=== PATIENT | female | born 1995 | race Caucasian/White ===

== ENCOUNTER 2018-07-18 09:44 | Observation (INO) | payer MEDICAID ==
[2018-07-18] MEDS ORDERED: RINGERS SOLUTION,LACTATED 1,000 ML IV ONE (10:20)
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
[2018-07-18] MEDS ORDERED: MISOPROSTOL 0.2 MG TABLET PR PRN (10:25)
[2018-07-18] MEDS ORDERED: ZOLPIDEM TARTRATE 5 MG TABLET PO PRN (10:25)
[2018-07-18] MEDS ORDERED: MEASLES,MUMPS&RUBELLA VACC/PF 0.5 ML VIAL SUBCUT PRN (10:25)
[2018-07-18] MEDS ORDERED: PROMETHAZINE HCL INJ 25 MG/1 ML VIAL IV PRN (10:25)
[2018-07-18] MEDS ORDERED: PROMETHAZINE HCL 25 MG TABLET PO PRN (10:25)
[2018-07-18 11:48] LABS: ABSOLUTE BASOPHILS # (AUTO) 0.1 10^3/uL (0.0-0.2); ABSOLUTE LYMPHOCYTES (AUTO) 1.1 10^3/uL (0.5-4.7); ABSOLUTE MONOCYTES (AUTO) 0.7 10^3/uL (0.1-1.4); ABSOLUTE NEUT (AUTO) 11.9 10^3/uL (1.7-8.2); BASOPHILS % (AUTO) 0.4 % (0-2); EOSINOPHILS % (AUTO) 0.1 % (0-6); HEMATOCRIT 32.6 % (36.0-47.0); HEMOGLOBIN 11.4 g/dL (12.0-15.5); LYMPHOCYTES % (AUTO) 8.2 % (13-45); MEAN CORPUSCULAR HEMOGLOBIN 28.8 pg (27.0-33.4); MEAN CORPUSCULAR HGB CONC 34.9 g/dL (32.0-36.0); MEAN CORPUSCULAR VOLUME 82 fl (80-97); PLATELET COUNT 229 10^3/uL (150-450); RED BLOOD COUNT 3.95 10^6/uL (3.72-5.28); RED CELL DISTRIBUTION WIDTH 13.6 % (11.5-14.0); SEGMENTED NEUTROPHILS % (AUTO) 86.3 % (42-78); TOTAL CELLS COUNTED % (AUTO) 100 %; WHITE BLOOD COUNT 13.9 10^3/uL (4.0-10.5)
[2018-07-18 12:04] LABS: ALANINE AMINOTRANSFERASE 46 U/L (9-52); ALBUMIN 3.4 g/dL (3.5-5.0); ALKALINE PHOSPHATASE 92 U/L (38-126); ANION GAP 10 (5-19); ASPARTATE AMINO TRANSFERASE 18 U/L (14-36); BILIRUBIN,DIRECT 0.4 mg/dL (0.0-0.4); BILIRUBIN,TOTAL 0.9 mg/dL (0.2-1.3); BLOOD UREA NITROGEN 3 mg/dL (7-20); CALCIUM 9.5 mg/dL (8.4-10.2); CARBON DIOXIDE 23 mmol/L (22-30); CHLORIDE 104 mmol/L (98-107); GLUCOSE 87 mg/dL (75-110); INTERNATIONAL RATION (INR) 1.06; POTASSIUM 3.6 mmol/L (3.6-5.0); PROTHROMBIN TIME 14.3 SEC (11.4-15.4); SODIUM 136.8 mmol/L (137-145); TOTAL PROTEIN 6.5 g/dL (6.3-8.2)
[2018-07-18 12:05] LABS: PARTIAL THROMBOPLASTIN TIME 44.9 SEC (23.5-35.8)
[2018-07-18] MEDS ORDERED: MISOPROSTOL 0.2 MG TABLET ONE (13:44)
[2018-07-18] MEDS: IBUPROFEN 800 MG TABLET PO SCH ×2 (15:34→21:39)
--- NOTE | 2018-07-18 16:02 | PDOC PROGRESS REPORT ---
Subjective Progress Note for:: 07/18/18 Subjective:: states she has been crampy for a couple of days Reason For Visit: G1 at approximately 16 weeks in by EMS for c/o baby delivered in her underpants. states water broke at 0900 (45 mins before arrival to ER). fetus found in underpants with placenta still undelivered. placenta delivered by CNM easily, cx found to be 1cm dilated and possible products felt in uterus. discussed with Dr Gupta. cytotec placed OR 800mcg at 1420. Physical Exam - Physical Exam Vital Signs: Temp Pulse Resp BP Pulse Ox 98.0 F 105 H 18 127/69 H 97 07/18/18 15:18 07/18/18 15:18 07/18/18 15:18 07/18/18 15:18 07/18/18 15:18 General appearance: PRESENT: no acute distress - exam done by er dr Eddy Laboratory Results: 07/18/18 11:37 07/18/18 11:37 07/18/18 07/18/18 07/18/18 11:37 11:37 11:37 WBC 13.9 H RBC 3.95 Hgb 11.4 L Hct 32.6 L MCV 82 MCH 28.8 MCHC 34.9 RDW 13.6 Plt Count 229 Seg Neutrophils % 86.3 H Lymphocytes % 8.2 L Monocytes % 5.0 Eosinophils % 0.1 Basophils % 0.4 Absolute Neutrophils 11.9 H Absolute Lymphocytes 1.1 Absolute Monocytes 0.7 Absolute Eosinophils 0.0 Absolute Basophils 0.1 Sodium 136.8 L Potassium 3.6 Chloride 104 Carbon Dioxide 23 Anion Gap 10 BUN 3 L Creatinine 0.30 L Est GFR ( Amer) > 60 Est GFR (Non-Af Amer) > 60 Glucose 87 Calcium 9.5 Total Bilirubin 0.9 AST 18 ALT 46 Alkaline Phosphatase 92 Total Protein 6.5 Albumin 3.4 L Blood Type O POSITIVE Antibody Screen NEGATIVE Assessment & Plan - Diagnosis (1) Retained products of conception after miscarriage Is this a current diagnosis for this admission?: Yes (2) Spontaneous Is this a current diagnosis for this admission?: Yes - Time Time Spent with patient: 25-34 minutes Anticipated discharge: Home Within: within 24 hours - Plan Summary Plan Summary: discharge in AM if stable
[2018-07-18] MEDS: FERROUS SULFATE 325 MG TABLET PO SCH (18:36)
[2018-07-18] MEDS: DOCUSATE SODIUM 100 MG CAPSULE PO SCH (18:36)
[2018-07-18] MEDS: FAMOTIDINE 20 MG TABLET PO SCH (21:39)
[2018-07-19] MEDS: IBUPROFEN 800 MG TABLET PO SCH (05:44)
[2018-07-19 07:39] LABS: MEAN CORPUSCULAR HEMOGLOBIN 29.7 pg (27.0-33.4); MEAN CORPUSCULAR HGB CONC 35.4 g/dL (32.0-36.0); MEAN CORPUSCULAR VOLUME 84 fl (80-97); PLATELET COUNT 204 10^3/uL (150-450); RED BLOOD COUNT 3.69 10^6/uL (3.72-5.28); RED CELL DISTRIBUTION WIDTH 14.1 % (11.5-14.0); WHITE BLOOD COUNT 7.3 10^3/uL (4.0-10.5)
[2018-07-19] MEDS: FERROUS SULFATE 325 MG TABLET PO SCH (09:56)
[2018-07-19] MEDS: FAMOTIDINE 20 MG TABLET PO SCH (09:56)
[2018-07-19] MEDS: DOCUSATE SODIUM 100 MG CAPSULE PO SCH (09:56)
--- NOTE | 2018-07-19 09:59 | PDOC DISCHARGE SUMMARY ---
General - Admit/Disc Date/PCP Admission Date/Primary Care Provider: 07/18/18 10:32 Discharge Date: 07/19/18 - Discharge Diagnosis (1) Retained products of conception after miscarriage Is this a current diagnosis for this admission?: Yes (2) Spontaneous Is this a current diagnosis for this admission?: Yes - Additional Information Resuscitation Status: Full Code Discharge Diet: Regular Discharge Activity: Balance Activity w/Rest Prescriptions: Ibuprofen [Motrin 800 mg Tablet] 800 mg PO Q8HP PRN #30 tablet PRN Reason: Home Medications: Acetaminophen [Tylenol Extra Strength 500 mg Tablet] 1,000 mg PO Q5HP PRN 95/Iron Fum/Folic/Dha [ + Dha Combo Pack] 1 each PO DAILY 07/18 Ibuprofen [Motrin 800 mg Tablet] 800 mg PO Q8HP PRN #30 tablet 07/19/18 History of Present Illness History of Present Illness: SUDHAKAR DA SILVA is a 22 year old female Physical Exam - Physical Exam Vital Signs: Temp Pulse Resp BP Pulse Ox 97.8 F 78 16 110/68 99 07/19/18 03:20 07/19/18 03:20 07/19/18 03:20 07/19/18 03:20 07/19/18 03:20 Intake & Output 07/18/18 07/19/18 07/20/18 06:59 06:59 06:59 Intake Total 2640 Balance 2640 Weight 193 kg Focused psych exam: ABSENT: catatonic, delusional - normal affect, euphoric, flight of ideas, internal stimuli, paranoid, pressured speech, psychomotor agitation, restlessness, other - Gynecological Exam Uterus: normal - nontender, low, firm Result Laboratory Results: 07/19/18 07:02 07/18/18 11:37 07/18/18 07/18/18 07/18/18 11:37 11:37 11:37 WBC 13.9 H RBC 3.95 Hgb 11.4 L Hct 32.6 L MCV 82 MCH 28.8 MCHC 34.9 RDW 13.6 Plt Count 229 Seg Neutrophils % 86.3 H Lymphocytes % 8.2 L Monocytes % 5.0 Eosinophils % 0.1 Basophils % 0.4 Absolute Neutrophils 11.9 H Absolute Lymphocytes 1.1 Absolute Monocytes 0.7 Absolute Eosinophils 0.0 Absolute Basophils 0.1 Sodium 136.8 L Potassium 3.6 Chloride 104 Carbon Dioxide 23 Anion Gap 10 BUN 3 L Creatinine 0.30 L Est GFR ( Amer) > 60 Est GFR (Non-Af Amer) > 60 Glucose 87 Calcium 9.5 Total Bilirubin 0.9 AST 18 ALT 46 Alkaline Phosphatase 92 Total Protein 6.5 Albumin 3.4 L Blood Type O POSITIVE Antibody Screen NEGATIVE 07/19/18 07:02 WBC 7.3 RBC 3.69 L Hgb 11.0 L Hct 31.0 L MCV 84 MCH 29.7 MCHC 35.4 RDW 14.1 H Plt Count 204 Seg Neutrophils % Lymphocytes % Monocytes % Eosinophils % Basophils % Absolute Neutrophils Absolute Lymphocytes Absolute Monocytes Absolute Eosinophils Absolute Basophils Sodium Potassium Chloride Carbon Dioxide Anion Gap BUN Creatinine Est GFR ( Amer) Est GFR (Non-Af Amer) Glucose Calcium Total Bilirubin AST ALT Alkaline Phosphatase Total Protein Albumin Blood Type Antibody Screen Plan Time Spent: Less than 30 Minutes - discharge today with f/u with [facility] at [facility] on saturday
[2018-07-19 10:39] VITALS: BP 110/68
== END 2018-07-19 10:53 | disposition home or self-care (01) ==
LOC: ER 09:44 → INTOOBSV 10:32 → OBSVTOIN 10:32 → EH 10:32 → 2N 12:00
PROVIDERS: ADMIT Obstetrics & Gynecology; ATTEND Obstetrics & Gynecology
DX: O03.39 Incomplete spontaneous abortion with other complications (principal); R00.0 Tachycardia, unspecified; O41.1220 Chorioamnionitis, second trimester, not applicable or unspecified
CPT/HCPCS: 99285; 86900; 86901; 36415 ×2; 86850; 84702; 85025; 85027; 85610; 85730; 80053; 88304 ×2; 88305 ×2; G0378 ×3; J3490 ×8

== ENCOUNTER 2020-05-20 14:50 | Outpatient (CLI) | payer MEDICAID ==
[2020-05-20 15:34] LABS: MEAN CORPUSCULAR HEMOGLOBIN 28.4 pg (27.0-33.4); MEAN CORPUSCULAR HGB CONC 34.2 g/dL (32.0-36.0); MEAN CORPUSCULAR VOLUME 83 fl (80-97); PLATELET COUNT 236 10^3/uL (150-450); RED BLOOD COUNT 4.58 10^6/uL (3.72-5.28); RED CELL DISTRIBUTION WIDTH 14.1 % (11.5-14.0); WHITE BLOOD COUNT 10.3 10^3/uL (4.0-10.5)
[2020-05-20 15:50] LABS: APPEARANCE,URINE SLIGHTLY-CLOUDY; BILIRUBIN,URINE NEGATIVE (NEGATIVE); COLOR,URINE YELLOW; GLUCOSE, URINE NEGATIVE (NEGATIVE); KETONES,URINE NEGATIVE (NEGATIVE); LEUKOCYTE ESTERASE,URINE NEGATIVE (NEGATIVE); NITRITE,URINE NEGATIVE (NEGATIVE); PROTEIN,URINE 30 mg/dL (NEGATIVE); URINE SPECIFIC GRAVITY 1.028
[2020-05-20 16:02] LABS: ALBUMIN 3.4 g/dL (3.5-5.0); ALKALINE PHOSPHATASE 109 U/L (38-126); ANION GAP 7 (5-19); ASPARTATE AMINO TRANSFERASE 14 U/L (14-36); BILIRUBIN,TOTAL 0.3 mg/dL (0.2-1.3); BLOOD UREA NITROGEN 7 mg/dL (7-20); CALCIUM 9.2 mg/dL (8.4-10.2); CARBON DIOXIDE 20 mmol/L (22-30); CHLORIDE 108 mmol/L (98-107); GLUCOSE 78 mg/dL (75-110); POTASSIUM 4.1 mmol/L (3.6-5.0); TOTAL PROTEIN 6.3 g/dL (6.3-8.2); URIC ACID 6.2 mg/dL (2.5-6.2)
[2020-05-20 16:11] LABS: URINE AMPHETAMINES SCREEN NEGATIVE; URINE BARBITURATES SCREEN NEGATIVE; URINE BENZODIAZEPINES SCREEN NEGATIVE; URINE COCAINE SCREEN NEGATIVE; URINE METHADONE SCREEN NEGATIVE; URINE PHENCYCLIDINE SCREEN NEGATIVE
[2020-05-20 16:14] LABS: URINE CREATININE 201.7 mg/dL (16-327); URINE PROTEIN 8.8 mg/dL (<12)
[2020-05-20 16:17] LABS: URINE MARIJUANA (THC) SCREEN UNCONFIRMED POSITIVE
--- NOTE | 2020-05-20 16:29 | Non Stress Test Report ---
Non Stress Test Datetime Report Generated by CPN: 05/20/2020 16:29 DEMOGRAPHIC Test Number: 1 INDICATION Indication for Study (NST) Other: PIH workup VITAL SIGNS Temperature - NST: 97.5 Pulse - NST: 88 RESP - NST: 18 NBPSYS NST: 138 NBPDIA NST: 67 MONITORING Monitor Explained: Monitor Explained; Test Explained; Patient Verbalized Understanding Time on Monitor: 05/20/2020 15:13 Time off Monitor: 05/20/2020 16:19 NST Duration: 66 NST INTERVENTIONS NST Interventions: PO Hydration; Reposition Patient Physician Notified NST: Dr Larry BABY A: [id number] BABY A Movement : Present Contraction Frequency : irregular FHR Baseline : 130 Accelerations : 15X15 Decelerations : None Variability : Moderate 6-25bpm NST Review: Meets Criteria for Reactive NST NST Review and Verified By : Alecia Serrano RN NST Results: Reactive NST REPORT Report Trigger: Send Report
== END 2020-05-20 16:28 | disposition home or self-care (01) ==
LOC: LC 14:50
PROVIDERS: ATTEND Obstetrics & Gynecology
DX: O16.3 Unspecified maternal hypertension, third trimester (principal); O47.1 False labor at or after 37 completed weeks of gestation; Z3A.39 39 weeks gestation of pregnancy
CPT/HCPCS: 59025; 36415; 84156; 84550; 82570; 85027; 81005; 80053; 80307; G0480 ×2; 80349

== ENCOUNTER 2020-05-25 17:31 | Inpatient (IN) | payer MEDICAID ==
[2020-05-25] MEDS ORDERED: RINGERS SOLUTION,LACTATED 1,000 ML IV PRN (17:41)
[2020-05-25] MEDS ORDERED: RINGERS SOLUTION,LACTATED 1,000 ML IV ONE (17:41)
[2020-05-25] MEDS ORDERED: ACETAMINOPHEN 325 MG TABLET PO PRN (17:43)
[2020-05-25] MEDS ORDERED: ZOLPIDEM TARTRATE 5 MG TABLET PO PRN (17:43)
[2020-05-25] MEDS ORDERED: MAG HYDROX/AL HYDROX/SIMETH SUSP 30 ML UDCUP PO PRN (17:43)
[2020-05-25] MEDS ORDERED: DINOPROSTONE 10 MG VAGINAL INSERT.SR PV ONE (17:43)
[2020-05-25 18:34] LABS: ABSOLUTE EOSINOPHILS # (AUTO) 0.1 10^3/uL (0.0-0.6); ABSOLUTE LYMPHOCYTES (AUTO) 1.7 10^3/uL (0.5-4.7); ABSOLUTE MONOCYTES (AUTO) 0.6 10^3/uL (0.1-1.4); ABSOLUTE NEUT (AUTO) 7.4 10^3/uL (1.7-8.2); BASOPHILS % (AUTO) 0.3 % (0-2); EOSINOPHILS % (AUTO) 0.9 % (0-6); HEMATOCRIT 37.3 % (36.0-47.0); HEMOGLOBIN 12.8 g/dL (12.0-15.5); MEAN CORPUSCULAR HEMOGLOBIN 28.4 pg (27.0-33.4); MEAN CORPUSCULAR HGB CONC 34.3 g/dL (32.0-36.0); MEAN CORPUSCULAR VOLUME 83 fl (80-97); MONOCYTES % (AUTO) 6.4 % (3-13); PLATELET COUNT 254 10^3/uL (150-450); RED CELL DISTRIBUTION WIDTH 14.4 % (11.5-14.0); SEGMENTED NEUTROPHILS % (AUTO) 75.4 % (42-78); TOTAL CELLS COUNTED % (AUTO) 100 %; WHITE BLOOD COUNT 9.8 10^3/uL (4.0-10.5)
[2020-05-25 18:49] LABS: ALBUMIN 3.6 g/dL (3.5-5.0); ALKALINE PHOSPHATASE 113 U/L (38-126); ANION GAP 9 (5-19); ASPARTATE AMINO TRANSFERASE 15 U/L (14-36); BILIRUBIN,TOTAL 0.3 mg/dL (0.2-1.3); BLOOD UREA NITROGEN 5 mg/dL (7-20); CALCIUM 9.1 mg/dL (8.4-10.2); CARBON DIOXIDE 19 mmol/L (22-30); CHLORIDE 107 mmol/L (98-107); GLUCOSE 76 mg/dL (75-110); TOTAL PROTEIN 6.5 g/dL (6.3-8.2); URIC ACID 6.7 mg/dL (2.5-6.2)
[2020-05-25] MEDS ORDERED: DINOPROSTONE 10 MG VAGINAL INSERT.SR ONE (18:50)
[2020-05-25 18:51] LABS: APPEARANCE,URINE CLOUDY; BILIRUBIN,URINE NEGATIVE (NEGATIVE); COLOR,URINE YELLOW; GLUCOSE, URINE NEGATIVE (NEGATIVE); KETONES,URINE NEGATIVE (NEGATIVE); LEUKOCYTE ESTERASE,URINE NEGATIVE (NEGATIVE); NITRITE,URINE NEGATIVE (NEGATIVE); PROTEIN,URINE NEGATIVE (NEGATIVE)
[2020-05-25 19:04] LABS: URINE AMPHETAMINES SCREEN NEGATIVE; URINE BARBITURATES SCREEN NEGATIVE; URINE BENZODIAZEPINES SCREEN NEGATIVE; URINE COCAINE SCREEN NEGATIVE; URINE METHADONE SCREEN NEGATIVE; URINE PHENCYCLIDINE SCREEN NEGATIVE
[2020-05-25 19:06] LABS: URINE MARIJUANA (THC) SCREEN UNCONFIRMED POSITIVE
[2020-05-25 19:07] LABS: URINE CREATININE 168.3 mg/dL (16-327); URINE PROTEIN 7.9 mg/dL (<12)
[2020-05-25] MEDS ORDERED: LIDOCAINE 1% INJ-PF (10 MG/ML) 30 ML SDV ONE (19:20)
[2020-05-25] MEDS ORDERED: MISOPROSTOL 0.2 MG TABLET ONE (19:20)
[2020-05-25] MEDS ORDERED: OXYTOCIN 10 UNIT/ML VIAL ONE (19:20)
[2020-05-25] MEDS ORDERED: OXYTOCIN/0.9 % SODIUM CHLORIDE 30 UNIT/500 ML RTUINJ ONE (19:20)
[2020-05-25] MEDS ORDERED: ZOLPIDEM TARTRATE 5 MG TABLET ONE (21:23)
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
--- NOTE | 2020-05-26 08:49 | L&D Progress Notes ---
PROGRESS NOTES Datetime Report Generated by CPN: 05/26/2020 08:49 PROGRESS NOTE Impression: Reassuring Heart Rate Procedures: Sterile Vag Exam Plan: Induction Plan Other: Start Pitocin Informed Consent Obtained: Vaginal Delivery; Induction of Labor; Risks, Benefits and Alternatives Discussed Vital Signs : Reviewed; Within Normal Limits Comment: at 39.5 here for IOL due to GHTN. s/p Cervidil overnight. Pt doing well this morning. No complaints. GBS negative. VE FT/80/-1, vtx, soft cervix. Pt unsure of epidural when in active labor. Pain management options reviewed. Plan to start Pitocin, then AROM w/ cervical change. Attending MD is Dr Gupta today VAGINAL EXAM Dilatation: 0 Effacement: 50 Station: -2 Contractions: rare LAST VAGINAL EXAM-NURSING Nursing Exam Dilitation: 1.0 Nursing Exam Effacement: 80 Nursing Exam Station: -1 Nursing Exam Contractions: Patient denies contractions and pain at this time. MEMBRANES Membranes: Intact FETUS A FHR - Baseline: 145 Monitoring: External US Variability: Moderate 6-25bpm Accelerations: 15X15 Decelerations: None Presentation: Vertex SIGNATURE SIGNATURE: [id number];[id number] Assignment: Airam Mcgregor MD Signature: with User ID: [email or web address] : with User ID: [email or web address]
--- NOTE | 2020-05-26 13:42 | L&D Progress Notes ---
PROGRESS NOTES Datetime Report Generated by CPN: 05/26/2020 13:41 PROGRESS NOTE Impression: Reassuring Heart Rate Procedures: Sterile Vag Exam Plan: Continue Present Management; Induction Plan Other: Start Pitocin Informed Consent Obtained: Vaginal Delivery; Induction of Labor; Risks, Benefits and Alternatives Discussed Vital Signs : Reviewed; Within Normal Limits Comment: Pitocin infusing, pt feeling contractions but remains comfortable. VE, difficult to locate cervix on exam, unable to AROM at this time. Will continue with Pitocin, position changes encouraged VAGINAL EXAM Dilatation: 0 Effacement: 50 Station: -2 Contractions: rare LAST VAGINAL EXAM-NURSING Nursing Exam Dilitation: 1.0 Nursing Exam Effacement: 80 Nursing Exam Station: -1 Nursing Exam Contractions: uterus palpates soft, denies contractions. Reviewed plan with assigned nurse to assess/troubleshoot Zelda device before increasing Pitocin MEMBRANES Membranes: Intact FETUS A FHR - Baseline: 145 Monitoring: External US Variability: Moderate 6-25bpm Accelerations: 15X15 Decelerations: None Presentation: Vertex SIGNATURE SIGNATURE: [id number];[id number];[id number] Assignment: Jaymie Gupta MD Signature: with User ID: [email or web address] : with User ID: [email or web address]
--- NOTE | 2020-05-26 15:53 | L&D Progress Notes ---
PROGRESS NOTES Datetime Report Generated by CPN: 05/26/2020 15:52 PROGRESS NOTE Impression: Reassuring Heart Rate Procedures: Sterile Vag Exam Plan: Induction Plan Other: Start Pitocin Informed Consent Obtained: Vaginal Delivery; Induction of Labor; Risks, Benefits and Alternatives Discussed Vital Signs : Reviewed; Within Normal Limits Comment: IOL for GHTN, pt doing well, Pitocin infusing. VE tight 1 cm/ 90/ -1, very anterior cervix. Posiiton changes encouraged, continue w/ Pitocin VAGINAL EXAM Dilatation: 0 Effacement: 50 Station: -2 Contractions: rare LAST VAGINAL EXAM-NURSING Nursing Exam Dilitation: 1.0 Nursing Exam Effacement: 90 Nursing Exam Station: -1 Nursing Exam Contractions: uterus palpates soft, denies contractions. Reviewed plan with assigned nurse to assess/troubleshoot Zelda device before increasing Pitocin MEMBRANES Membranes: Intact FETUS A FHR - Baseline: 150 Monitoring: External US Variability: Moderate 6-25bpm Accelerations: 15X15 Decelerations: None Presentation: Vertex SIGNATURE SIGNATURE: [id number];[id number];[id number] Assignment: Jaymie Gupta MD Signature: with User ID: [email or web address] : with User ID: [email or web address]
[2020-05-26] MEDS ORDERED: DINOPROSTONE 10 MG VAGINAL INSERT.SR ONE (20:05)
[2020-05-26] MEDS ORDERED: ZOLPIDEM TARTRATE 5 MG TABLET ONE (21:51)
[2020-05-26] MEDS ORDERED: ZOLPIDEM TARTRATE 5 MG TABLET PO ONE (21:53)
[2020-05-27] MEDS ORDERED: MORPHINE SULFATE 10 MG/ML INJ IV ONE (11:04)
[2020-05-27] MEDS ORDERED: MORPHINE SULFATE 10 MG/ML INJ ONE (11:06)
[2020-05-27] MEDS ORDERED: PROMETHAZINE HCL INJ 25 MG/1 ML VIAL ONE (11:10)
[2020-05-27] MEDS ORDERED: PROMETHAZINE HCL INJ 25 MG/1 ML VIAL IV ONE (11:10)
[2020-05-27 12:16] LABS: ABSOLUTE EOSINOPHILS # (AUTO) 0.1 10^3/uL (0.0-0.6); ABSOLUTE LYMPHOCYTES (AUTO) 1.4 10^3/uL (0.5-4.7); ABSOLUTE MONOCYTES (AUTO) 0.6 10^3/uL (0.1-1.4); ABSOLUTE NEUT (AUTO) 7.4 10^3/uL (1.7-8.2); BASOPHILS % (AUTO) 0.2 % (0-2); EOSINOPHILS % (AUTO) 0.8 % (0-6); HEMOGLOBIN 13.2 g/dL (12.0-15.5); LYMPHOCYTES % (AUTO) 15.1 % (13-45); MEAN CORPUSCULAR HEMOGLOBIN 28.4 pg (27.0-33.4); MEAN CORPUSCULAR HGB CONC 34.7 g/dL (32.0-36.0); MEAN CORPUSCULAR VOLUME 82 fl (80-97); MONOCYTES % (AUTO) 5.9 % (3-13); PLATELET COUNT 231 10^3/uL (150-450); RED BLOOD COUNT 4.65 10^6/uL (3.72-5.28); TOTAL CELLS COUNTED % (AUTO) 100 %; WHITE BLOOD COUNT 9.5 10^3/uL (4.0-10.5)
[2020-05-27] MEDS ORDERED: OXYTOCIN/0.9 % SODIUM CHLORIDE 30 UNIT/500 ML RTUINJ IV PRN (12:30)
[2020-05-27 12:34] LABS: ALBUMIN 3.3 g/dL (3.5-5.0); ALKALINE PHOSPHATASE 113 U/L (38-126); ANION GAP 7 (5-19); ASPARTATE AMINO TRANSFERASE 14 U/L (14-36); BILIRUBIN,TOTAL 0.5 mg/dL (0.2-1.3); BLOOD UREA NITROGEN 7 mg/dL (7-20); CALCIUM 8.9 mg/dL (8.4-10.2); CARBON DIOXIDE 20 mmol/L (22-30); CHLORIDE 107 mmol/L (98-107); GLUCOSE 78 mg/dL (75-110); TOTAL PROTEIN 6.3 g/dL (6.3-8.2); URIC ACID 6.2 mg/dL (2.5-6.2)
[2020-05-27] MEDS ORDERED: OXYTOCIN/0.9 % SODIUM CHLORIDE 30 UNIT/500 ML RTUINJ ONE (12:34)
--- NOTE | 2020-05-27 15:29 | L&D Progress Notes ---
PROGRESS NOTES Datetime Report Generated by CPN: 05/27/2020 15:29 PROGRESS NOTE Impression: Reassuring Heart Rate Impression Other: not in labor Procedures: Sterile Vag Exam Procedures- Other: removed dolan balloon and turned off pitocin Plan: Induction Plan Other: Start Pitocin Informed Consent Obtained: Vaginal Delivery; Induction of Labor; Risks, Benefits and Alternatives Discussed Vital Signs : Reviewed; Within Normal Limits Comment: after 5 hours of dolan balloon and 3 hours of pitocin, no cervical change and only frances rarely. FB deflated and removed. pitocin turned off. BP normal and no sx pre-e. P:cytotec, discuss with dr paula VAGINAL EXAM Dilatation: 1 Effacement: 90 Station: -2 Contractions: rare LAST VAGINAL EXAM-NURSING Nursing Exam Dilitation: 1.0 Nursing Exam Effacement: 90 Nursing Exam Station: -2 Nursing Exam Contractions: UTD due to wireless monitor not working; RN at bedside troubleshooting monitor MEMBRANES Membranes: Bulging FETUS A FHR - Baseline: 140 Monitoring: External US Variability: Moderate 6-25bpm Accelerations: 10X10 Decelerations: None FHR Category: Category I : 40.0 Presentation: Vertex SIGNATURE SIGNATURE: [id number];[id number];[id number] Assignment: Elle Paula MD Signature: with User ID: [email or web address] : with User ID: [email or web address]
[2020-05-27] MEDS ORDERED: MISOPROSTOL 0.1 MG TABLET PO ONE ×2 (15:42→20:32)
[2020-05-27] MEDS ORDERED: MISOPROSTOL 0.1 MG TABLET PV ONE ×2 (15:43→20:33)
[2020-05-27] MEDS ORDERED: MISOPROSTOL 0.1 MG TABLET ONE ×2 (16:08→20:09)
[2020-05-28] MEDS ORDERED: CEFAZOLIN 2 GM/D5W RTU 2 GM/50 ML RTUPB IV PRN (04:59)
[2020-05-28] MEDS ORDERED: CITRIC ACID/SODIUM CITRATE ORAL SOLN 15 ML UDCUP PO PRN (05:02)
[2020-05-28] MEDS ORDERED: CEFAZOLIN 2 GM/D5W RTU 2 GM/50 ML RTUPB IV ONE (05:16)
[2020-05-28] MEDS ORDERED: CITRIC ACID/SODIUM CITRATE ORAL SOLN 15 ML UDCUP ONE (05:16)
[2020-05-28] MEDS ORDERED: OXYTOCIN 10 UNIT/ML VIAL ONE (05:52)
[2020-05-28] MEDS ORDERED: OXYTOCIN/0.9 % SODIUM CHLORIDE 30 UNIT/500 ML RTUINJ ONE (05:53)
[2020-05-28] MEDS ORDERED: MIDAZOLAM 2 MG/2 ML INJ ONE (05:53)
[2020-05-28] MEDS ORDERED: ONDANSETRON HCL INJ/PF 4 MG/2 ML SDV ONE (05:53)
[2020-05-28] MEDS ORDERED: MORPHINE SULFATE 10 MG/ML INJ ONE (05:54)
[2020-05-28] MEDS ORDERED: DIPHENHYDRAMINE HCL 50 MG/ML VIAL IV PRN (06:23)
[2020-05-28] MEDS ORDERED: PROMETHAZINE HCL INJ 25 MG/1 ML VIAL IV PRN ×3 (06:23→07:06)
[2020-05-28] MEDS ORDERED: MORPHINE SULFATE 10 MG/ML INJ IV PRN ×2 (06:23→07:06)
[2020-05-28] MEDS ORDERED: OXYCODONE-ACETAMINOPHEN 5-325 MG TABLET PO PRN ×4 (06:23→07:06)
[2020-05-28] MEDS ORDERED: FENTANYL CITRATE INJ/PF 100 MCG/2 ML AMPUL IV PRN ×3 (06:23)
[2020-05-28] MEDS ORDERED: MEPERIDINE HCL/PF INJ 25 MG/1 ML DISP.SYRIN IV PRN (06:23)
--- NOTE | 2020-05-28 07:05 | Operative Report ---
Operative Report DATE OF SURGERY: 05/28/20 PREOPERATIVE DIAGNOSIS: IUP @ 40 1/7 wks, gestational hypertension, failed geneva ction POSTOPERATIVE DIAGNOSIS: same OPERATION: Primary low transverse hysterotomy section SURGEON: BARBARA ARCHULETA ANESTHESIA: Spinal COMPLICATIONS: None ESTIMATED BLOOD LOSS: 800 cc INTRAOPERATIVE FINDINGS: Infant cephalic presentation Apgars of 8 and 9 PROCEDURE: PROCEDURE IN DETAIL: The patient was taken to the operating room, prepared and draped in a normal sterile fashion in a supine position with a leftward tilt. A transverse skin incision was made with a scalpel and carried through to the underlying layer of fascia with the same scalpel. The fascia was excised in the midline and extended laterally with Emerson. The fascia was then dissected from the rectus muscle sharply with Emerson and the rectus muscle was divided and the peritoneal cavity was entered sharply with the same Metzenbaum. With good visualization of the bladder and the uterus the bladder blade was inserted. The hysterotomy was nicked with a scalpel and extended laterally with surgeon finger fraction. The was then delivered atraumatically. The nose and mouth were suctioned with a suction bulb, the cord was clamped and cut and handed off to awaiting pediatricians. Cord blood was collected. The placenta was removed manually. The uterus was exteriorized and cleared of clots and debris. The hysterotomy was closed with 0 Monocryl in a running, locked fashion. A second layer of the same suture was used to imbricate to ensure hemostasis. The uterus was returned to the abdomen and peritoneal cavity was cleared of clots and debris. The rectus muscle and peritoneum were repaired with mattress stitch of 2-0 Chromic. The fascia was closed with 0-Vicryl. The subcutaneous layer was closed with plain catgut and the skin was closed with 4-0 Vicryl. The patient tolerated the procedure well. Sponge, lap, and needle counts correct x2 and the patient was taken to recovery in stable condition.
[2020-05-28] MEDS ORDERED: ACETAMINOPHEN 1,000 MG/100 ML RTUPB IV PRN (07:06)
[2020-05-28] MEDS ORDERED: RINGERS SOLUTION,LACTATED 1,000 ML IV PRN (07:06)
[2020-05-28] MEDS ORDERED: MEASLES,MUMPS&RUBELLA VACC/PF 0.5 ML VIAL SUBCUT PRN (07:06)
[2020-05-28] MEDS ORDERED: SIMETHICONE 80 MG TAB.CHEW PO PRN (07:06)
[2020-05-28] MEDS ORDERED: DIPH/PERTUSS(ACELL)/TETANUS VAC/PF 0.5 ML SYR (>=10YO) IM PRN (07:06)
[2020-05-28] MEDS ORDERED: OXYTOCIN/0.9 % SODIUM CHLORIDE 30 UNIT/500 ML RTUINJ IV PRN (07:06)
[2020-05-28] MEDS ORDERED: ACETAMINOPHEN 325 MG TABLET PO PRN (07:06)
--- NOTE | 2020-05-28 07:14 | PDOC PROGRESS REPORT ---
Subjective Progress Note for:: 05/28/20 Subjective:: Indication for procedure. IUP at 40 weeks and 1 day stational hypertension. Patient had been present in the L&D for approximately 3 days and had had multiple attempts at inducing her labor which were not successful. Patient underwent Cervidil for ripening x2 a 12-hour trial of Pitocin as well as another 12-hour trial of Pitocin with Masters bulb in place she then had 2 doses of Cytotec for cervical ripening brains ruptured she failed to progress in labor passed a 1 cm dilation of the cervix. The options were discussed with the patient and she and her opted for section understanding the risk involved with surgery and the likely need for repeat with subsequent childbearing based on her lack of response to induction efforts with this Reason For Visit: /INDUCTION Addendum to operative report Result Laboratory Results: 05/27/20 11:53 05/27/20 11:53 05/27/20 05/27/20 11:53 11:53 WBC 9.5 RBC 4.65 Hgb 13.2 Hct 38.0 MCV 82 MCH 28.4 MCHC 34.7 RDW 14.0 Plt Count 231 Seg Neutrophils % 78.0 Sodium 133.7 L Potassium 4.0 Chloride 107 Carbon Dioxide 20 L Anion Gap 7 BUN 7 Creatinine 0.43 L Est GFR ( Amer) > 60 Glucose 78 Uric Acid 6.2 Calcium 8.9 Total Bilirubin 0.5 AST 14 Alkaline Phosphatase 113 Total Protein 6.3 Albumin 3.3 L Assessment & Plan - Time Time Spent with patient: 15-24 minutes Anticipated discharge: Home Anticipated DC Timeframe: within 48 hours
[2020-05-28] MEDS ORDERED: KETOROLAC TROMETHAMINE INJ/PF 30 MG/1 ML SDV ONE (07:43)
[2020-05-28] MEDS ORDERED: ACETAMINOPHEN 1,000 MG/100 ML RTUPB IV ONE (07:44)
[2020-05-28] MEDS ORDERED: PHENYLEPHRINE HCL INJ/PF 10 MG/1 ML SDV ONE (08:55)
[2020-05-28] MEDS: DOCUSATE SODIUM 100 MG CAPSULE PO SCH ×2 (11:40→17:19)
[2020-05-28] MEDS: PRENATAL VITAMIN W DHA CAPSULE PO SCH (11:40)
[2020-05-28] MEDS: KETOROLAC TROMETHAMINE INJ/PF 30 MG/1 ML SDV IV SCH ×2 (14:44→21:48)
--- NOTE | 2020-05-28 19:38 | Delivery Summary ---
Del Sum A-C Datetime Report Generated by CPN: 05/28/2020 19:38 DELIVERY PERSONNEL DELIVERY PERSONNEL: [id number] Delivery Doctor:: Elle Irvin MD Anesthesiologist:: Sailaja Castillo MD POLICY WRITER:: Km Zuniga CRNA Labor and Delivery Nurse:: Eloina Barrios RN Reducing Machine Operator:: Eloina Barrios RN Neonatal Nurse Practitioner:: ROLAN Stovall Nursery Nurse:: Yanet Patton RN [employer]/MEDICAL ASSISTING INSTRUCTOR: ST Omer [employer]/MEDICAL ASSISTING INSTRUCTOR: Kesha Lancaster CST Additional Personnel: : Juan Rogers RN MATERNAL INFORMATION Delivery Anesthesia: Spinal Medications After Delivery: Pitocin 30 Units in 500ml NS/D5W Delivery QBL: 820 Maternal Complications: Other Other Maternal Complications: Failed Induction LABOR SUMMARY EDC: 05/27/2020 00:00 No. Babies in Womb: 1 Attempted: No Labor Anesthesia: None LABOR INFORMATION Reason for Induction: Gestational Hypertension Cervical Ripening Agents: Cervidil; Masters Balloon; Cytotec @ Other Ripening Agents: cervidil removed by pt Oxytocin: Induction Group B Beta Strep: Negative Antibiotics # of Doses: 0 Antibiotics Time of Last Dose: N/A Name of Antibiotic Given: N/A Steroids Given: None Reason Steroids Not Administered: Not Applicable MEMBRANES Membranes Rupture Method: Spontaneous Rupture of Membranes: 05/28/2020 00:11 Length of Rupture (hr): 6.23 Amniotic Fluid Color: Clear Amniotic Fluid Amount: Small STAGES OF LABOR Stage 3 hr: 0 Stage 3 min: 1 VAGINAL DELIVERY Episiotomy: None Laceration #1: None Laceration Extension #1: N/A Laceration Repair: Not Applicable Sponge Count Correct: N/A Sharps Count Correct: N/A CSECTION DELIVERY Primary Indication: Failed Induction CSection Urgency: Non-Scheduled CSection Incidence: Primary Labor: No Labor Elective: Nonelective CSection Incision: Lower Uterine Transverse BABY A INFORMATION Delivery Date/Time: 05/28/2020 06:25 Method of Delivery: Nurse Controlled Delivery: No Born in Route : No : N/A Forceps: N/A Vacuum Extraction: N/A Shoulder Dystocia : No PRESENTATION/POSITION BABY A Presentation: Cephalic Cephalic Presentation: Vertex Breech Presentation: N/A PLACENTA INFORMATION BABY A Placenta Delivery Time : 05/28/2020 06:26 Placenta Method of Delivery: Manual Removal Placenta Status: Delivered SCORES BABY A Heart Rate 1 min: >100 bpm Resp Effort 1 min: Good Cry Reflex Irritability 1 min: Cough or Sneeze or Pulls Away Muscle Tone 1 min: Active Motion Color 1 min: Body [place], Extremities Blue SCORE 1 MIN: 9 Heart Rate 5 min: >100 bpm Resp Effort 5 min: Good Cry Reflex Irritability 5 min: Cough or Sneeze or Pulls Away Muscle Tone 5 min: Active Motion Color 5 min: Body [place], Extremities Blue SCORE 5 MIN: 9 INFORMATION BABY A Gestational Age at Delivery: 40.0 Gestational Status: Full Term- 39- 40.6 Weeks Infant Outcome : Liveborn Condition : Stable Infant Sex: Male IDENTIFICATION BABY A Verification Date/Time: 05/28/2020 06:39 ID Band Number: [id number] Mother's Name Verified: Yes RN Verifying Infant: Sandy GonzalezKaty SOTO Additional Verifying Personnel: Jadon Rogers RN WEIGHT/LENGTH BABY A Infant Birthweight (gm): 2920 Infant Weight (lb): 6 Infant Weight (oz): 7 Length (in): 19.00 Infant Length (cm): 48.26 CORD INFORMATION BABY A No. Cord Vessels: 3 Nuchal Cord : N/A Cord Blood Taken: Yes-For Eval (Mom's Blood Type - or O+) Infant Suction: Mouth; Nose ASSESSMENT BABY A Complications: None Physical Findings at Delivery: Within Normal Limits Physical Findings- Other: See full nursery newspaper delivery driver Infant Respirations: Appears Normal [employer]ing Worker/ALS Called : No Infant Care By: Pavel Patton RN and Pavel David CRYPTOLOGIC SUPPORT SPECIALIST Transferred To: Nursery BABY B INFORMATION : N/A SIGNATURES : I was personally available for consultation and serving as supervising physician for the MLP.
[2020-05-29] MEDS: IBUPROFEN 800 MG TABLET PO SCH ×4 (05:34→21:33)
[2020-05-29 06:37] LABS: HEMATOCRIT 24.8 % (36.0-47.0); MEAN CORPUSCULAR HEMOGLOBIN 28.4 pg (27.0-33.4); MEAN CORPUSCULAR HGB CONC 33.9 g/dL (32.0-36.0); MEAN CORPUSCULAR VOLUME 84 fl (80-97); PLATELET COUNT 179 10^3/uL (150-450); RED BLOOD COUNT 2.96 10^6/uL (3.72-5.28); RED CELL DISTRIBUTION WIDTH 14.2 % (11.5-14.0); WHITE BLOOD COUNT 8.6 10^3/uL (4.0-10.5)
[2020-05-29 06:41] LABS: HEMOGLOBIN 8.4 g/dL (12.0-15.5)
[2020-05-29] MEDS: PRENATAL VITAMIN W DHA CAPSULE PO SCH (10:20)
[2020-05-29] MEDS: DOCUSATE SODIUM 100 MG CAPSULE PO SCH ×2 (10:20→18:25)
[2020-05-29] MEDS ORDERED: IBUPROFEN 800 MG TABLET PO SCH (12:00)
--- NOTE | 2020-05-29 12:00 | PDOC PROGRESS REPORT ---
Subjective-OB Progress Note for:: 05/29/20 Subjective: reports bleeding slowing, pain controlled with current meds. denies needs, +passing gas Physical Exam (OB) Vital Signs: Temp Pulse Resp BP Pulse Ox 97.9 F 100 16 135/79 H 100 05/29/20 08:20 05/29/20 08:20 05/29/20 08:20 05/29/20 08:20 05/29/20 08:20 Intake & Output 05/28/20 05/29/20 05/30/20 06:59 06:59 06:59 Intake Total 1000 500 Output Total 1550 Balance -550 500 - Dressing Removed: No - drainage outlined Incision: Dressing Closure Type: opsite - Abdomen Description: Tender, Soft Hernia Present: No Fundal Description: Firm, Midline Fundal Height: u/u - u/2 - Abdominal Distension: No distension - Extremities Lower extremities: Donna's sign - neg Calf: Normal, Nontender Objective-Diagnostic Laboratory: 05/29/20 06:03 05/27/20 11:53 05/29/20 06:03 WBC 8.6 RBC 2.96 L Hgb 8.4 L D Hct 24.8 L MCV 84 MCH 28.4 MCHC 33.9 RDW 14.2 H Plt Count 179 Assessment and Plan(PN) - Assessment and Plan (1) Failed induction of labor, delivered Is this a current diagnosis for this admission?: Yes (2) Gestational hypertension Qualifiers: Trimester: unspecified trimester Qualified Code(s): O13.9 - Gestational [-induced] hypertension without significant proteinuria, unspecified trimester Is this a current diagnosis for this admission?: Yes - Time Spent with Patient Time with patient: Less than 15 minutes - Disposition Anticipated Discharge Disposition: Home, Self Care Anticipated Discharge Timeframe: within 48 hours
[2020-05-29] MEDS ORDERED: FERRIC CARBOXYMALTOSE INJ 750 MG/15 ML VIAL IV ONE (13:33)
[2020-05-29] MEDS ORDERED: FERRIC CARBOXYMALTOSE 750 MG in NORMAL SALINE 250 ML IV ONE (14:30)
[2020-05-29] MEDS: FERROUS SULFATE 325 MG TABLET PO SCH (18:25)
[2020-05-30] MEDS: IBUPROFEN 800 MG TABLET PO SCH ×2 (03:02→09:29)
[2020-05-30 07:36] LABS: ABSOLUTE EOSINOPHILS # (AUTO) 0.2 10^3/uL (0.0-0.6); ABSOLUTE LYMPHOCYTES (AUTO) 2.1 10^3/uL (0.5-4.7); ABSOLUTE MONOCYTES (AUTO) 0.5 10^3/uL (0.1-1.4); ABSOLUTE NEUT (AUTO) 5.9 10^3/uL (1.7-8.2); BASOPHILS % (AUTO) 0.4 % (0-2); EOSINOPHILS % (AUTO) 2.3 % (0-6); HEMATOCRIT 23.9 % (36.0-47.0); HEMOGLOBIN 8.2 g/dL (12.0-15.5); LYMPHOCYTES % (AUTO) 24.2 % (13-45); MEAN CORPUSCULAR HEMOGLOBIN 28.5 pg (27.0-33.4); MEAN CORPUSCULAR HGB CONC 34.4 g/dL (32.0-36.0); MEAN CORPUSCULAR VOLUME 83 fl (80-97); MONOCYTES % (AUTO) 5.6 % (3-13); PLATELET COUNT 216 10^3/uL (150-450); RED BLOOD COUNT 2.89 10^6/uL (3.72-5.28); RED CELL DISTRIBUTION WIDTH 14.6 % (11.5-14.0); SEGMENTED NEUTROPHILS % (AUTO) 67.5 % (42-78); TOTAL CELLS COUNTED % (AUTO) 100 %; WHITE BLOOD COUNT 8.7 10^3/uL (4.0-10.5)
[2020-05-30] MEDS: PRENATAL VITAMIN W DHA CAPSULE PO SCH (09:29)
[2020-05-30] MEDS: DOCUSATE SODIUM 100 MG CAPSULE PO SCH (09:30)
[2020-05-30] MEDS: FERROUS SULFATE 325 MG TABLET PO SCH (09:30)
--- NOTE | 2020-05-30 10:53 | PDOC DISCHARGE SUMMARY ---
Impression - Admit/DC Date/PCP Admission Date/Primary Care Provider: 05/25/20 17:31 SAMIR SHAH MD Discharge Date: 05/30/20 - Discharge Diagnosis (1) delivery delivered Is this a current diagnosis for this admission?: Yes (2) Failed induction of labor, delivered Is this a current diagnosis for this admission?: Yes (3) Gestational hypertension Is this a current diagnosis for this admission?: Yes - Additional Information Resuscitation Status: Full Code Discharge Diet: Regular Discharge Activity: Balance Activity w/Rest, No Lifting Over 10 Pounds, No Lifting/Push/Pulling, Pelvic Rest, No tub bath Referrals: SAMIR SHAH MD [Primary Care Provider] - (Follow up in 1 week. Call the office and make an appointment. ) Prescriptions: Oxycodone HCl/Acetaminophen [Percocet 5-325 mg Tablet] 1 tab PO Q4HP PRN #30 tablet PRN Reason: For Pain Scale 3-5 Ibuprofen [Motrin 800 mg Tablet] 800 mg PO Q8HP PRN #60 tablet PRN Reason: Home Medications: 95/Iron Fum/Folic/Dha [ + Dha Combo Pack] 1 each PO DAILY 07/18/18 Calcium Phosphate Trib/Vit D3 [Calcium + Vitamin D3 Gummies] 1 tab PO DAILY 05/20/20 Ibuprofen [Motrin 800 mg Tablet] 800 mg PO Q8HP PRN #60 tablet 05/30/20 Oxycodone HCl/Acetaminophen [Percocet 5-325 mg Tablet] 1 tab PO Q4HP PRN #30 tablet 05/30/20 HPI Reason(s) for Admission: Induction of Labor, PIH Procedures: NST Intrapartum Procedure(s): Spontaneous Vaginal Delivery, : Low Cervical, Transverse Results Laboratory Results: WBC 8.7 10^3/uL (4.0-10.5) 05/30/20 06:59 RBC 2.89 10^6/uL (3.72-5.28) L 05/30/20 06:59 Hgb 8.2 g/dL (12.0-15.5) L 05/30/20 06:59 Hct 23.9 % (36.0-47.0) L 05/30/20 06:59 MCV 83 fl (80-97) 05/30/20 06:59 MCH 28.5 pg (27.0-33.4) 05/30/20 06:59 MCHC 34.4 g/dL (32.0-36.0) 05/30/20 06:59 RDW 14.6 % (11.5-14.0) H 05/30/20 06:59 Plt Count 216 10^3/uL (150-450) 05/30/20 06:59 Lymph % (Auto) 24.2 % (13-45) 05/30/20 06:59 [place] % (Auto) 5.6 % (3-13) 05/30/20 06:59 Eos % (Auto) 2.3 % (0-6) 05/30/20 06:59 Baso % (Auto) 0.4 % (0-2) 05/30/20 06:59 Absolute Neuts (auto) 5.9 10^3/uL (1.7-8.2) 05/30/20 06:59 Absolute Lymphs (auto) 2.1 10^3/uL (0.5-4.7) 05/30/20 06:59 Absolute Monos (auto) 0.5 10^3/uL (0.1-1.4) 05/30/20 06:59 Absolute Eos (auto) 0.2 10^3/uL (0.0-0.6) 05/30/20 06:59 Absolute Basos (auto) 0.0 10^3/uL (0.0-0.2) 05/30/20 06:59 Seg Neutrophils % 67.5 % (42-78) 05/30/20 06:59 Sodium 133.7 mmol/L (137-145) L 05/27/20 11:53 Potassium 4.0 mmol/L (3.6-5.0) 05/27/20 11:53 Chloride 107 mmol/L (98-107) 05/27/20 11:53 Carbon Dioxide 20 mmol/L (22-30) L 05/27/20 11:53 Anion Gap 7 (5-19) 05/27/20 11:53 BUN 7 mg/dL (7-20) 05/27/20 11:53 Creatinine 0.43 mg/dL (0.52-1.25) L 05/27/20 11:53 Est GFR ( Amer) > 60 (>60) 05/27/20 11:53 Est GFR (MDRD) Non-Af > 60 (>60) 05/27/20 11:53 Glucose 78 mg/dL (75-110) 05/27/20 11:53 Uric Acid 6.2 mg/dL (2.5-6.2) 05/27/20 11:53 Calcium 8.9 mg/dL (8.4-10.2) 05/27/20 11:53 Total Bilirubin 0.5 mg/dL (0.2-1.3) 05/27/20 11:53 Direct Bilirubin 0.0 mg/dL (0.0-0.4) 05/27/20 11:53 Neonat Total Bilirubin Not Reportable 05/27/20 11:53 Neonat Direct Bilirubin Not Reportable 05/27/20 11:53 Neonat Indirect Bili Not Reportable 05/27/20 11:53 AST 14 U/L (14-36) 05/27/20 11:53 ALT 7 U/L (<35) 05/27/20 11:53 Alkaline Phosphatase 113 U/L (38-126) 05/27/20 11:53 Lactate Dehydrogenase 160 U/L (120-246) 05/27/20 11:53 Total Protein 6.3 g/dL (6.3-8.2) 05/27/20 11:53 Albumin 3.3 g/dL (3.5-5.0) L 05/27/20 11:53 Urine Color YELLOW 05/25/20 17:40 Urine Appearance CLOUDY 05/25/20 17:40 Urine pH 5.0 (5.0-9.0) 05/25/20 17:40 Ur Specific [place] 1.020 05/25/20 17:40 Urine Protein NEGATIVE mg/dL (NEGATIVE) 05/25/20 17:40 Urine Glucose (UA) NEGATIVE mg/dL (NEGATIVE) 05/25/20 17:40 Urine Ketones NEGATIVE mg/dL (NEGATIVE) 05/25/20 17:40 Urine Blood NEGATIVE (NEGATIVE) 05/25/20 17:40 Urine Nitrite NEGATIVE (NEGATIVE) 05/25/20 17:40 Urine Bilirubin NEGATIVE (NEGATIVE) 05/25/20 17:40 Urine Urobilinogen 2.0 mg/dL (<2.0) H 05/25/20 17:40 Ur Leukocyte Esterase NEGATIVE (NEGATIVE) 05/25/20 17:40 Urine WBC (Auto) 5 /HPF 05/25/20 17:40 Urine RBC (Auto) 6 /HPF 05/25/20 17:40 Urine Bacteria (Auto) 2+ /HPF 05/25/20 17:40 Squamous Epi Cells Auto 13 /HPF 05/25/20 17:40 Urine Mucus (Auto) FEW /LPF 05/25/20 17:40 Urine Creatinine 168.3 mg/dL (16-327) 05/25/20 17:40 Protein/Creatinin Ratio 0.0 mg/mg (0.0-0.2) 05/25/20 17:40 Urine Total Protein 7.9 mg/dL (<12) 05/25/20 17:40 Urine Ascorbic Acid NEGATIVE (NEGATIVE) 05/25/20 17:40 Urine Opiates Screen NEGATIVE 05/25/20 17:40 Urine Methadone Screen NEGATIVE 05/25/20 17:40 Ur Barbiturates Screen NEGATIVE 05/25/20 17:40 Ur Phencyclidine Scrn NEGATIVE 05/25/20 17:40 Ur Amphetamines Screen NEGATIVE 05/25/20 17:40 U Benzodiazepines Scrn NEGATIVE 05/25/20 17:40 Urine Cocaine Screen NEGATIVE 05/25/20 17:40 U Marijuana (THC) Screen UNCONFIRMED POSITIVE 05/25/20 17:40 RPR NONREACTIVE (NONREACTIVE) 05/25/20 18:08 Blood Type O POSITIVE 05/25/20 18:08 Antibody Screen NEGATIVE 05/25/20 18:08 Plan Plan of Treatment: f/u at [facility] on Saturday for incision check Time Spent: Less than 30 Minutes
[2020-05-30 11:38] VITALS: BP 148/80
== END 2020-05-30 17:50 | disposition home or self-care (01) | DRG 788 ==
LOC: LR 17:31 → 2S 05-28 09:15
PROVIDERS: ADMIT Student in an Organized Health Care Education/Training Program; ATTEND Student in an Organized Health Care Education/Training Program
PROC: 3E0P7VZ Introduction of Hormone into Female Reproductive, Via Natural or Artificial Opening (ICD-10-PCS; 2020-05-27)
PROC: 3E033VJ Introduction of Other Hormone into Peripheral Vein, Percutaneous Approach (ICD-10-PCS; 2020-05-27)
PROC: 10D00Z1 Extraction of Products of Conception, Low, Open Approach (ICD-10-PCS; principal; 2020-05-28)
DX: O13.4 Gestational [pregnancy-induced] hypertension without significant proteinuria, complicating childbirth (principal); O61.0 Failed medical induction of labor; Z91.048 Other nonmedicinal substance allergy status; Z87.891 Personal history of nicotine dependence; Z3A.39 39 weeks gestation of pregnancy; Z37.0 Single live birth
CPT/HCPCS: 1961; 36415; 80053; 80307; 80349; 81001; 82570; 83615; 84156; 84550; 85025; 85027; 86592; 86850; 86900; 86901; 94760; 94799; C1758; G0480; J0131; J0690; J1439; J1885; J2250; J2270; J2370; J2405; J2550; J2590; J3490; J7050